=== PATIENT | male | born 1960 | race Caucasian/White ===

== ENCOUNTER 2024-06-01 08:44 | Emergency (ER) | payer MEDICARE, BC, SELFPAY ==
[2024-06-01] VITALS (51 sets, daily range): BP systolic 82–129; BP diastolic 56–98; PULSE 50–144; RESP 15–19; TEMP 35.6; O2SAT 94–99; BMI 27.9
--- NOTE | 2024-06-01 09:03 | CRLHL7_ITS ---
For Patients: As a result of the Century Cures Act, medical imaging exams and procedure reports are released immediately into your electronic medical record. You may view this report before your referring provider. If you have questions, please contact your health care provider. INDICATION: Chest pain. TECHNIQUE: Chest 2 views. COMPARISON: None. FINDINGS: Cardiovascular and mediastinum: Heart size is normal. Unremarkable mediastinum. Lungs and pleural spaces: Lungs are clear. No sign of infiltrate or mass. No sign of pleural effusion. No pneumothorax. Bones and soft tissues: Mild degenerative disease of the spine. IMPRESSION: No acute or significant findings. Dictated by Ashley Subramanian MD @ 06/01/2024 9:36:02 AM (Electronically Signed)
[2024-06-01] MEDS: 0.9 % SODIUM CHLORIDE 1000 ml 1,000 ML IV ×2 (09:10→11:00)
[2024-06-01 09:16] LABS: Basophils Absolute Auto 0.05 K/uL (0.00-0.30); Basophils Percent Auto 0.7 % (0.0-3.0); Eosinophils Absolute Auto 0.44 K/uL (0.00-0.50); Eosinophils Percent Auto 6.1 % (0.0-7.0); Hematocrit 46.5 % (37.0-53.0); Hemoglobin* 15.4 gm/dL (13.5-17.5); Immature Granulocytes Abs Auto 0.01 K/uL (0.00-0.30); Immature Granulocytes Pct Auto 0.1 %; Lymphocytes Percent Auto 18.4 % (20-44); Mean Corpuscular HGB Conc 33 gm/dL (32-36); Mean Corpuscular Hemoglobin 29 pg (26-34); Mean Corpuscular Volume 89 fL (80-100); Neutrophils Absolute Auto 4.74 K/uL (1.7-7.0); Neutrophils Percent Auto 65.7 % (42.0-72.0); Platelet Count* 266 K/uL (140-440); RDW Coefficient of Variation % 13.1 % (11.5-15.5); Red Blood Count 5.24 m/uL (4.30-5.90); White Blood Count* 7.22 K/uL (4.50-11.00)
[2024-06-01 09:20] LABS: Slide Review Reflex No
[2024-06-01] MEDS: ASPIRIN 81 MG TAB.CHEW 324 MG PO (09:25)
[2024-06-01] MEDS: dilTIAZem 5 MG/ML inj 10 MG IVP ×2 (09:27→11:30)
--- NOTE | 2024-06-01 09:39 | ED_ITS ---
HPI - Arrhythmia/Palpitations General Date Seen: 06/01/24 Chief Complaint: Arrhythmia/Palpitations Stated Complaint: irregular heartbeat Time Seen by Provider: 06/01/24 08:49 Source: patient and family Mode of arrival: ambulatory Limitations: no limitations History of Present Illness HPI narrative: Patient is a very nice 64-year-old gentleman who woke up this morning with a feeling that his heart was racing, he had palpitations associated with the really not chest pain shortness of breath, in fact he told me he refill fine although in triage they wondered if he did not look so fine because he was sweaty and slightly diaphoretic. He notes that he does not really have a heart history of any problems denies any alcohol intake says maybe he was a little dehydrated yesterday, denies any leg swelling associated with this. Nausea vomiting diarrhea or COVID symptoms. Presents here with his . complaint: rapid heart beat and heart racing Severity: moderate Context: occurred during rest Associated symptoms: denies other symptoms Related Data Home Medications ?Medication ?Instructions ?Recorded ?Confirmed finasteride 5 mg tablet 5 mg PO DAILY 06/01/24 06/01/24 ketorolac 0.5 % eye drops drp ophthalmic (eye) 06/01/24 omeprazole 20 mg capsule,delayed 20 mg PO DAILY 06/01/24 06/01/24 release rosuvastatin 10 mg tablet 10 mg PO QPM 06/01/24 06/01/24 tamsulosin 0.4 mg capsule 0.4 mg PO DAILY 06/01/24 06/01/24 timolol maleate 0.5 % eye drops 1 drp ophthalmic (eye) BID 06/01/24 06/01/24 Previous Rx's ?Medication ?Instructions ?Recorded rivaroxaban 20 mg tablet (Xarelto) 20 mg PO DAILY #30 tabs 06/01/24 Allergies Allergy/AdvReac Type Severity Reaction Status Date / Time No Known Drug Allergies Allergy Verified 06/01/24 08:50 Review of Systems Status of ROS: Reports: 10 or more systems reviewed and unremarkable except as noted in History and below [facility] Social History Smoking Status: Never smoker Do you use any of these nicotine containing products: None How often do you have a drink containing alcohol: never How often do you have six or more drinks on one occasion: Never AUDIT-C Alcohol total score: 0 Non-prescribed substance use: denies use Exam Narrative: Exam Narrative: Patient is seen in room 5 he is in no apparent distress pleasant alert speaking normally pupils equal round reactive to light there is no scleral icterus redness TMs are normal oropharynx normal there is no adenopathy anterior posterior chains his chest is good air entry bilaterally no wheezing crackles noted heart sounds no clicks murmurs or gallops his abdomen is soft and slightly obese there is no guarding or pedis splenomegaly skin reveals no petechiae rashes he moves all extremities independently and well. Well perfused, no edema, negative Homans signs. Neurologically intact in his upper lower extremities. Const: Vital Signs, click to edit/add: Vital Signs - 24 hr 06/01/24 08:46 06/01/24 09:03 06/01/24 09:03 Temperature 96.1 F L Pulse Rate Pulse Rate [Pulse Oximeter] 99 130 H Respiratory Rate 18 18 Blood Pressure Blood Pressure [Ri ght Upper Arm] 82/58 L Pulse Oximetry 98 96 96 Oxygen Delivery Me thod Room Air Oxygen Flow Rate 06/01/24 09:14 06/01/24 09:15 06/01/24 09:17 Temperature Pulse Rate 123 H 144 H 122 H Pulse Rate [Pulse Oximeter] Respiratory Rate Blood Pressure 106/56 L Blood Pressure [Ri ght Upper Arm] Pulse Oximetry 96 96 97 Oxygen Delivery Me thod Oxygen Flow Rate 06/01/24 09:30 06/01/24 09:32 06/01/24 09:45 Temperature Pulse Rate 109 H 97 82 Pulse Rate [Pulse Oximeter] Respiratory Rate Blood Pressure 112/56 L Blood Pressure [Ri ght Upper Arm] Pulse Oximetry 95 96 97 Oxygen Delivery Me thod Oxygen Flow Rate 06/01/24 09:46 06/01/24 10:00 06/01/24 10:02 Temperature Pulse Rate 98 97 106 H Pulse Rate [Pulse Oximeter] Respiratory Rate Blood Pressure 101/81 114/84 Blood Pressure [Ri ght Upper Arm] Pulse Oximetry 97 97 95 Oxygen Delivery Me thod Oxygen Flow Rate 06/01/24 10:15 06/01/24 10:19 06/01/24 10:30 Temperature Pulse Rate 90 84 92 Pulse Rate [Pulse Oximeter] Respiratory Rate Blood Pressure Blood Pressure [Ri ght Upper Arm] Pulse Oximetry 96 96 97 Oxygen Delivery Me thod Oxygen Flow Rate 06/01/24 10:34 06/01/24 10:38 06/01/24 10:39 Temperature Pulse Rate 86 131 H 89 Pulse Rate [Pulse Oximeter] Respiratory Rate Blood Pressure 111/92 H Blood Pressure [Ri ght Upper Arm] Pulse Oximetry 96 96 95 Oxygen Delivery Me thod Oxygen Flow Rate 06/01/24 10:45 06/01/24 11:00 06/01/24 11:01 Temperature Pulse Rate 84 92 Pulse Rate [Pulse Oximeter] Respiratory Rate Blood Pressure 110/75 Blood Pressure [Ri ght Upper Arm] Pulse Oximetry 95 94 96 Oxygen Delivery Me thod Oxygen Flow Rate 06/01/24 11:13 06/01/24 11:15 06/01/24 11:30 Temperature Pulse Rate 90 95 97 Pulse Rate [Pulse Oximeter] Respiratory Rate Blood Pressure 118/79 Blood Pressure [Ri ght Upper Arm] Pulse Oximetry 97 96 94 Oxygen Delivery Me thod Oxygen Flow Rate 06/01/24 11:31 06/01/24 11:45 06/01/24 12:00 Temperature Pulse Rate 116 H 82 75 Pulse Rate [Pulse Oximeter] Respiratory Rate Blood Pressure 106/90 H Blood Pressure [Ri ght Upper Arm] Pulse Oximetry 98 94 94 Oxygen Delivery Me thod Oxygen Flow Rate 06/01/24 12:01 06/01/24 12:02 06/01/24 12:15 Temperature Pulse Rate 78 84 83 Pulse Rate [Pulse Oximeter] Respiratory Rate Blood Pressure 115/83 Blood Pressure [Ri ght Upper Arm] Pulse Oximetry 96 95 98 Oxygen Delivery Me thod Oxygen Flow Rate 06/01/24 12:30 06/01/24 12:30 06/01/24 12:32 Temperature Pulse Rate 88 101 H Pulse Rate [Pulse Oximeter] Respiratory Rate 16 Blood Pressure 119/98 H Blood Pressure [Ri ght Upper Arm] Pulse Oximetry 94 96 Oxygen Delivery Me thod Oxygen Flow Rate 06/01/24 12:45 06/01/24 13:00 06/01/24 13:02 Temperature Pulse Rate 85 95 95 Pulse Rate [Pulse Oximeter] Respiratory Rate Blood Pressure 121/79 Blood Pressure [Ri ght Upper Arm] Pulse Oximetry 97 98 98 Oxygen Delivery Me thod Oxygen Flow Rate 06/01/24 13:16 06/01/24 13:30 06/01/24 13:31 Temperature Pulse Rate 86 121 H Pulse Rate [Pulse Oximeter] Respiratory Rate 15 15 Blood Pressure 112/92 H Blood Pressure [Ri ght Upper Arm] Pulse Oximetry 98 97 Oxygen Delivery Me thod Oxygen Flow Rate 06/01/24 13:36 06/01/24 13:41 06/01/24 13:45 Temperature Pulse Rate 102 H 54 L 52 L Pulse Rate [Pulse Oximeter] Respiratory Rate 19 16 17 Blood Pressure 129/87 103/67 Blood Pressure [Ri ght Upper Arm] Pulse Oximetry 99 98 97 Oxygen Delivery Me thod Oxygen Flow Rate 06/01/24 13:46 06/01/24 13:49 06/01/24 13:49 Temperature Pulse Rate 52 L Pulse Rate [Pulse Oximeter] 51 L Respiratory Rate 19 16 Blood Pressure 94/65 Blood Pressure [Ri ght Upper Arm] Pulse Oximetry 98 99 97 Oxygen Delivery Me thod Nasal Cannula Nasal Cannula Oxygen Flow Rate 2 2 Course Course ED Course: I discussed with him, we will try some maneuvers, I used IV fluids x2 L along with magnesium, to see we can convert over his atrial fibrillation, this did not work, we did however get him 1 more reasonable course, in the 110s to 120 region. He continued to be fairly symptomatic with this. I did consult with Cardiology after discussing with him, he suggested electricity and cardioversion, I went over the risks benefits and side effects with this, he is greater than 6 hours NPO. And with the doctor Jose D doing at anesthesia for me. With propofol, 120 joules was used, synchronized x1, to convert him, and actually appeared he converted slightly before this, maybe with a propofol. EKG post cardioversion showed atrial fibrillation with controlled rate of 53. He will need post cardioversion anticoagulation for 1 month. Follow-up with primary care, and likely echo. Reevaluation(s) Time of Reevaluation #1: 14:55 Reevaluation #1: Patient remains in sinus rhythm, he feels well, at this point we can discharge him home, I discussed him with him for month long course of Xarelto, 20 mg a day, follow-up within a week with his primary care physician I suggest an echo as an outpatient also. Vital Signs Vital signs: Initial Vital Signs Temperature 96.1 F L 06/01/24 08:46 Temperature Source Temporal Artery Scan 06/01/24 08:46 Pulse Rate 99 06/01/24 08:46 Respiratory Rate 18 06/01/24 08:46 Blood Pressure 82/58 L 06/01/24 08:46 Blood Pressure Mean 66 L 06/01/24 08:46 Pulse Oximetry 98 06/01/24 08:46 Oxygen Delivery Method Room Air 06/01/24 08:46 Vital Signs Temperature 96.1 F L 06/01/24 08:46 Pulse Rate 99 06/01/24 08:46 Respiratory Rate 18 06/01/24 08:46 Blood Pressure 82/58 L 06/01/24 08:46 Pulse Oximetry 98 06/01/24 08:46 Oxygen Delivery Method Room Air 06/01/24 08:46 Temperature 96.1 F L 06/01/24 08:46 Pulse Rate 51 L 06/01/24 13:49 Respiratory Rate 16 06/01/24 13:49 Blood Pressure 94/65 06/01/24 13:46 Pulse Oximetry 97 06/01/24 13:49 Oxygen Delivery Method Nasal Cannula 06/01/24 13:49 Oxygen Flow Rate 2 06/01/24 13:49 Medications Administered Medications: Discontinued Medications Generic Name Dose Route Start Last Admin Trade Name Freq PRN Reason Stop Dose Admin Aspirin 324 mg 06/01/24 09:14 06/01/24 09:25 Aspirin 81 Mg Tab.Chew PO 06/01/24 09:15 324 mg ONCE ONE Administration Diltiazem HCl 10 mg 06/01/24 09:03 06/01/24 09:27 Diltiazem 5 Mg/Ml Inj IVP 06/01/24 09:04 10 mg ONCE ONE Administration Diltiazem HCl 10 mg 06/01/24 11:23 06/01/24 11:30 Diltiazem 5 Mg/Ml Inj IVP 06/01/24 11:24 10 mg ONCE ONE Administration Sodium Chloride 1,000 mls @ 1,000 mls/hr 06/01/24 09:15 06/01/24 10:43 0.9 % Sodium Chloride 1000 Ml IV 06/01/24 10:14 Infused .Q1H DARREL Infusion Sodium Chloride 1,000 mls @ 1,000 mls/hr 06/01/24 11:30 06/01/24 12:00 0.9 % Sodium Chloride 1000 Ml IV 06/01/24 12:29 Infused .Q1H DARREL Infusion Magnesium Sulfate 2 gm in 50 mls @ 150 mls/hr 06/01/24 11:23 06/01/24 12:00 Magnesium Iv IVPB 06/01/24 11:42 Infused ONCE ONE Infusion Rivaroxaban 20 mg 06/01/24 14:01 06/01/24 14:26 Rivaroxaban 10 Mg Tablet PO 06/01/24 14:02 20 mg ONCE ONE Administration MDM - Arrhythmia/Palpitations MDM Narrative Medical decision making narrative: Differential diagnosis includes but is not limited to psychosocial stress, thyroid abnormalities, CHF, SVT, atrial fibrillation, ventricular tachycardia and ventricular fibrillation. This includes the life-threatening complications of heart failure, V-tach, and VFib Medical Records Attestation: I reviewed the patient's medical records. Lab Data Attestation: I reviewed the patient's lab results. Labs: Lab Results 06/01/24 06/01/24 06/01/24 Range/Units 09:03 09:05 11:54 WBC 7.22 (4.50-11.00) K/uL RBC 5.24 (4.30-5.90) m/uL Hgb 15.4 (13.5-17.5) gm/dL Hct 46.5 (37.0-53.0) % MCV 89 (80-100) fL MCH 29 (26-34) pg MCHC 33 (32-36) gm/dL RDW Coeff of Danielle 13.1 (11.5-15.5) % Plt Count 266 (140-440) K/uL Neut % (Auto) 65.7 (42.0-72.0) % Lymph % (Auto) 18.4 L (20-44) % [place] % (Auto) 9.0 (0.0-11.0) % Eos % (Auto) 6.1 (0.0-7.0) % Baso % (Auto) 0.7 (0.0-3.0) % Neut # (Auto) 4.74 (1.7-7.0) K/uL Lymph # (Auto) 1.30 (0.90-2.90) K/uL [place] # (Auto) 0.60 (0.00-0.90) K/UL Eos # (Auto) 0.44 (0.00-0.50) K/uL Baso # (Auto) 0.05 (0.00-0.30) K/uL Abs Immat Gran (auto) 0.01 (0.00-0.30) K/uL Imm/Tot Granulo (auto) 0.1 % INR 0.98 (0.91-1.10) APTT 26 (23-33) Seconds D-Dimer Quant (PE/DVT) 0.47 (0.00-0.50) ug/ml Sodium 137 (135-149) mmol/L Potassium 3.8 (3.6-5.1) mmol/L Chloride 104 (96-114) mmol/L Carbon Dioxide 23 (20-32) mmol/L Anion Gap 10 (7-15) mEq/L BUN 16 (7-30) mg/dL Creatinine 0.9 (0.5-1.5) mg/dL Estimated Creat Clear 78.44 Estimated GFR 95 ml/min Glucose 162 H (60-115) mg/dL Calcium 9.1 (8.4-10.6) mg/dL Magnesium 2.1 (1.5-2.6) mg/dL NT-Pro-B Natriuret Pep 104 pg/mL TSH 2.230 (0.270-4.20) uIU/mL SARS-CoV-2 (PCR) Negative SARS-CoV-2 (Negative) Influenza Type A (PCR) Negative PCR FLU A (Negative) Influenza Type B (PCR) Negative PCR FLU B (Negative) RSV (PCR) Negative PCR RSV (Negative) Lab Acknowledgement POC Troponin I 0.00 L 0.01 (0.01-0.04) ng/ml 06/01/24 06/01/24 Range/Units 12:44 13:02 WBC (4.50-11.00) K/uL RBC (4.30-5.90) m/uL Hgb (13.5-17.5) gm/dL Hct (37.0-53.0) % MCV (80-100) fL MCH (26-34) pg MCHC (32-36) gm/dL RDW Coeff of Danielle (11.5-15.5) % Plt Count (140-440) K/uL Neut % (Auto) (42.0-72.0) % Lymph % (Auto) (20-44) % [place] % (Auto) (0.0-11.0) % Eos % (Auto) (0.0-7.0) % Baso % (Auto) (0.0-3.0) % Neut # (Auto) (1.7-7.0) K/uL Lymph # (Auto) (0.90-2.90) K/uL [place] # (Auto) (0.00-0.90) K/UL Eos # (Auto) (0.00-0.50) K/uL Baso # (Auto) (0.00-0.30) K/uL Abs Immat Gran (auto) (0.00-0.30) K/uL Imm/Tot Granulo (auto) % INR (0.91-1.10) APTT (23-33) Seconds D-Dimer Quant (PE/DVT) (0.00-0.50) ug/ml Sodium (135-149) mmol/L Potassium (3.6-5.1) mmol/L Chloride (96-114) mmol/L Carbon Dioxide (20-32) mmol/L Anion Gap (7-15) mEq/L BUN (7-30) mg/dL Creatinine (0.5-1.5) mg/dL Estimated Creat Clear Estimated GFR ml/min Glucose (60-115) mg/dL Calcium (8.4-10.6) mg/dL Magnesium (1.5-2.6) mg/dL NT-Pro-B Natriuret Pep pg/mL TSH (0.270-4.20) uIU/mL SARS-CoV-2 (PCR) (Negative) Influenza Type A (PCR) (Negative) Influenza Type B (PCR) (Negative) RSV (PCR) (Negative) Lab Acknowledgement Test Added Test Added POC Troponin I (0.01-0.04) ng/ml Imaging Data Chest x-ray: Attestation: I have reviewed the pertinent imaging results. My impression: Chest x-ray by my review did not show any acute findings Radiologist's impression: Chest x-ray by radiologist did not show any acute findings. ECG Data Attestation: I personally reviewed and interpreted this ECG as follows: ECG interpretation date: 06/01/24 Prior ECG tracings: not available for review Interpretation: Initial EKG shows rapid atrial fibrillation with a ventricular response of 156, it is nonspecific ST wave abnormalities her Critical Care Time Critical Care Time Critical Care Time: Yes Attestation: The patient required my highest level preparedness to intervene emergently and I personally spent this critical care time directly and personally managing the patient. This critical care time included: Obtaining a history; Examining the patient; Pulse oximetry; Ordering and reviewing of studies; Arranging urgent treatment with development of a management plan; Evaluation of patients response to treatment; Frequent reassessment discussions with other providers. This critical care time was performed to assess and manage the high probability of imminent life-threatening deterioration that could result in multiorgan failure. It was exclusive of separate billable procedures and treating other patients and teaching time. Total Critical Care Time in Minutes: 45 (Total critical care time: Approximately minutes due to high probability clinically significant, life- threatening deterioration, the patient required my highest level preparedness to intervene emergently and I personally spent this critical care time directly and personally managing the patient. T) Discharge Plan Discharge Clinical Impression: Heart palpitations, Atrial fibrillation with rapid ventricular response, Encounter for cardioversion procedure Patient Disposition: Home w/ Parent or Adult Condition: Stable Instructions: A-fib (Atrial Fibrillation) (ED), Heart Palpitations (ED) Additional Instructions: He will need follow-up with her physician within the next week, return here if increasing chest pain shortness of breath or other palpitations, he will need to take her anticoagulants for 1 month. Prescription given. Activity Level: Light activity Prescriptions: New Xarelto 20 mg tablet 20 mg PO DAILY Qty: 30 0RF Rx Instructions: must administer with evening meal No Action ketorolac 0.5 % drops ophthalmic (eye) tamsulosin 0.4 mg capsule 0.4 mg PO DAILY omeprazole 20 mg capsule,delayed release(DR/EC) 20 mg PO DAILY timolol maleate 0.5 % drops 1 drp ophthalmic (eye) BID finasteride 5 mg tablet 5 mg PO DAILY rosuvastatin 10 mg tablet 10 mg PO QPM Follow Up/Referrals: FABRICE IQBAL DO [Primary Care Provider] - Stand Alone Forms: [employer] Info Instructions
[2024-06-01 09:42] LABS: Partial Thromboplastin Time* 26 Seconds (23-33)
[2024-06-01 09:43] LABS: INR 0.98 (0.91-1.10); Prothrombin Time 13.6 Seconds
[2024-06-01 09:44] LABS: D Dimer Quantitative* 0.47 ug/ml (0.00-0.50)
[2024-06-01 09:47] LABS: Chloride* 104 mmol/L (96-114); Potassium* 3.8 mmol/L (3.6-5.1); Sodium* 137 mmol/L (135-149)
[2024-06-01 09:50] LABS: Anion Gap 10 mEq/L (7-15); Blood Urea Nitrogen* 16 mg/dL (7-30); Carbon Dioxide* 23 mmol/L (20-32); Creatinine* 0.9 mg/dL (0.5-1.5); Est. Creatinine Clearance* 78.44; Estimated Glomerular Filt Rate 95 ml/min; Glucose* 162 mg/dL (60-115)
[2024-06-01 09:51] LABS: Calcium* 9.1 mg/dL (8.4-10.6)
[2024-06-01 09:58] LABS: PCR FLU A Negative PCR FLU A (Negative); PCR FLU B Negative PCR FLU B (Negative); PCR RSV Negative PCR RSV (Negative); SARS PCR* Negative SARS-CoV-2 (Negative)
[2024-06-01 10:05] LABS: NT Pro B Type NatriureticPept* 104 pg/mL
[2024-06-01] MEDS: MAGNESIUM IV 2 GM/50 ML PIGGYBACK IVPB (11:35)
[2024-06-01 12:17] LABS: Troponin, Point-of-Care* 0.01 ng/ml (0.01-0.04)
[2024-06-01 13:03] LABS: Magnesium* 2.1 mg/dL (1.5-2.6)
[2024-06-01] MEDS: RIVAROXABAN 10 MG TABLET 20 MG PO (14:26)
--- NOTE | 2024-06-01 15:07 | ED.NURSE ---
Vital signs attached to conscious sedation sheet.
--- NOTE | 2024-06-01 15:07 | W.ED.CHARTNO ---
ED Chart Note Chart Note Details Date: 06/01/24 Details: I was requested to assist to Dr. Franco for sedation while he performed cardioversion of this patient. Appropriate pre sedation evaluation was done. Patient was consented on the risks and benefits of propofol for anesthesia. He was on appropriate cardiac monitoring, pulse oximetry, capnography and supplemental oxygen. He had brief apnea which was assisted with a few breath of bag mask ventilation. Independent breathing resumed and patient did fine with chin lift for few minutes. He had no concerning hemodynamic changes and was cardioverted into sinus rhythm. Please see Dr. Franco's note for full details. A total of 100 mg of propofol was used for sedation/anesthesia.
== END 2024-06-01 15:06 | disposition home or self-care (01) ==
PROVIDERS: Emergency Provider Family Medicine; PCP Student in an Organized Health Care Education/Training Program
DX: R00.2 Palpitations (principal); I48.91 Unspecified atrial fibrillation
CPT/HCPCS: 92960; 36415; 71046; 80048; 83735; 83880; 84443; 84484; 85025; 85379; 85610; 85730; 87631; 93005; 94761; 96365; 96375; 99156; 99285; 99291; A9270; J3475; J7030

== ENCOUNTER 2025-05-24 13:52 | Emergency (ER) | payer MEDICARE, BC, SELFPAY ==
[2025-05-24] VITALS (19 sets, daily range): BP systolic 93–128; BP diastolic 67–97; PULSE 46–161; RESP 10–22; TEMP 36.3; O2SAT 95–100; BMI 29.3
--- OUTSIDE RECORDS SUMMARY | 2025-05-24 14:01 | XMS_ITS | Clinical Summary ---
Author Organization [employer] Address [address] [place] [id number] Care Team Providers Care Instrument Engineer Name Role Phone Joel Dumont DO Primary Care Provider [phone] Allergies No known active allergies Medications ketorolac 0.5 % ophthalmic (ACULAR) solution Place 1 Drop into left eye 4 times daily. 10 mL 2 9 Active timoloL maleate (TIMOPTIC) 0.5 % ophthalmic solution Place 1 Drop into both eyes once daily. 5 Active rosuvastatin (CRESTOR) 10 mg tabletIndications:M ixed hyperlipidemia TAKE 1 TABLET (10 MG) BY MOUTH AT BEDTIME. 90 Tablet 3 5 Active omeprazole (PRILOSEC) 20 mg Delayed-Release capsuleIndications: Gastroesophageal reflux disease, unspecified whether esophagitis present TAKE 1 CAPSULE (20 MG) BY MOUTH ONCE DAILY BEFORE A MEAL. 30-60 MINUTES BEFORE FOOD 90 Capsule 3 5 Active Active Problems Problem Noted Date Diagnosed Date Paroxysmal atrial fibrillation 06/02/2024 Overview (06/02/2024): Diagnosed in ER on 06/01/2024. Cardioverted while hospitalized. Family history of prostate cancer 11/23/2020 Eosinophilic esophagitis 01/28/2012 Overview (01/28/2012): EGD 01/2012 esophageal ulcer, likely reflux related Screen for colon cancer 09/20/2009 Overview (09/20/2009): Colonoscopy 09/2009 normal repeat in 10 years Encounters Date Type Department Care Team Description 04/22/2025 Refill [facility] [address] [place] [address] Joel Dumont DO Refill Request (Rosuvastatin, Omeprazole) 04/13/2025 8:05 AM CDT Office Visit [facility] [address] [facility] [address] Joel Dumont DO Medicare ANNUAL (subsequent) Visit (65 year old ) 04/13/2025 Travel 04/08/2025 Travel from Last 3 Months Immunizations Immunization Administration Dates Next Due COVID-19 vaccine ([employer]ery [employer] 30mcg/0.3mL) PF, MDV 11/01/2020,10/11/2020 Influenza RIV4 (Age 18+ Year s) PRESERV FREE 06/17/2019 Influenza, High-dose Inactivated 07/07/2024 Influenza, IIV3 (Age >=3 years) 07/20/2013 Influenza, IIV4 07/03/2023,,07/14/2018,2016,08/10/2015,07/29/2014 Influenza, IIV4 (=>6mos) MDV 06/14/2021,06/24/20 20,06/18/2016 Pneumococcal Conj 20-valent (Prevnar 20) 04/10/2024 Td (Age >=7 Years) 12/22/2021,04/23/2008 Tdap 01/09/2012 Zoster (Shingrix-RZV, recombinant) 09/23/2019, Family History Medical History Relation Name Comments Stroke Father Good Health Mother Heart Disease Sister Other Sister hodgkins lympho ma Anesthesia Problem No Family History Relation Name Status Comments Father Mother Sister Social History Tobacco Use Types Packs/Day Years Used Date Smoking Tobacco: Never Smokeless Tobacco: Never Tobacco Cessation:Counseling Given: Yes Alcohol Use Standard Drinks/Week Comments Yes 10 (1 standard drink = 0.6 oz pu re alcohol) five drinks a week PHQ-2 Answer Date Recorded PHQ-2 TOTAL SCORE 0 04/13/2025 Social Connections Answer Date Recorded Do you often feel lonely or isolated from those around you? 0 04/13/2025 Financial Resource Strain Answer Date R ecorded Difficulty of Paying Living Expenses 3 04/13/2025 Difficulty of Paying Living Expenses Not on file 04/13/2025 Food Insecurity Answer Date Recorded Do you worry your food will run out before you are able to buy more? 1 04/13/2025 Transportation Needs Answer Date Record ed Does lack of transportation keep you from medica l appointments? 1 04/13/2025 Does lack of transportation keep you from work, meetings or getting things that you need? 1 04/13/2025 Housing Stability Answer Date Recorded What is your housing situation today? 1 04/13/2025 Utilities Answer Date Recorded Do you have trouble paying f or utilities (for example, heat, electricity, water, phone)? 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 file Not on file Not on f ile Obstetrics History Last Filed Vital Signs Vital Sign Reading Time Taken Comments Blood Pressure 136/84 04/13/2025 8:10 AM CDT Pulse 58 04/13/2025 8:10 AM CDT Temperature 36.6 C (97.8 F) 04/08/2023 8:28 AM CDT Respiratory Rate 16 10/05/2020 9:22 AM SHOP COORDINATOR Oxygen Saturation 98% 04/13/2025 8:10 AM CDT Inhaled Oxygen Concentration - - Weight 95.3 kg (210 lb 3.2 oz) 04/13/2025 8:10 A M CDT Height 179.1 cm (5' 10.51) 04/13/2025 8:10 AM C DT Body Mass Index 29.73 04/13/2025 8:10 AM CDT Plan of Treatment Health Maintenance Due Date Last Done Comments COVID-19 vaccine series ( season) 2025 07/19/2023, 06/13/2022, 06/14/2021, Additional history exists Influenza Vaccine (#1) 2025 , 07/03/2023, 06/13/2022, Additional history exists BMI (ht and wt on same day) for age 18+ 04/13/2026 04/13/2025, 04/10/2024, 04/08/2023, Additional history exists Depression screening for age 12+ 04/13/2026 04/13/2025, 04/10/2024, 04/08/2023, Additional history exists Medicare Wellness for age 65+ 04/14/2026 04/13/2025, 04/10/2024 Fecal testing sDNA-FIT (Cologuard) for age 45-75 04/15/2026 04/15/2023 Lipids for age 45-75 04/13/2030 04/13/2025, 04/10/2024, 04/08/2023, Additional history exists Tetanus booster 12/23/2031 12/22/2021, 12/16, 04/23/2008 RSV vaccine for adults or (1 - 1-dose 75+ series) 2034 Zoster (shingles) series for age 50+ Completed 09/23/2019, 06/10/2019 Hepatitis C screening for age 18-79 Completed 12/22/2021 Pneumococcal series for age 50+ Completed 04/10/2024 Hepatitis B series for 19+ Aged Out N o longer eligible based on patient's age to complete this topic Procedures Procedure Name Priority Date/Time Associated Diagnosis Comments LIPID PANEL W REFLEX MEASURED LDL Routine 04/13/2025 8:43 AM CDT Mixed hyperlipidemia BASIC METABOLIC PANEL Routine 04/13/2025 8:43 AM CDT Paroxysmal atrial fibrillation (HC) PSA TOTAL Routine 04/13/2025 8:43 AM CDT Family history of prostate cancer BPH with obstruction/lower urinary tract symptoms SDNA-FIT EXTERNAL (COLOGUARD) Routine 04/15/2023 8:00 AM CDT Screening for colon cancer ANTI HCV Routine 12/22/2021 9:20 AM CDT Need for hepatitis C screening test from Last 3 Months or Most Recently Relevant to Health Maintenance Results * LIPID PANEL W REFLEX MEASURED LDL (04/13/2025 8:43 AM CDT) CHOLESTEROL, TOTAL 142 <200 mg/dL [facility] HDL CHOLESTEROL 61 > OR = 40 mg/dL [facility] TRIGLYCERIDES 84 <150 mg/dL [facility] LDL-CHOLESTEROL 65 mg/dL (calc) [facility] Comment: Reference range: <100 Desirable range <100 mg/dL for primary prevention; <70 mg/dL for patients with CHD or diabetic patients with > or = 2 CHD risk factors. LDL-C is now calculated using the Gayle calculation, which is a validated novel method providing better accuracy than the Friedewald equation in the estimation of LDL-C. Collins SS et al. RAKESH. 2013;310(18): 3043-7645 (http://education.Ideal Network/faq/PVU635) CHOL/HDLC RATIO 2.3 <5.0 (calc) [facility] NON HDL CHOLESTEROL 81 <130 mg/dL (calc) [facility] Comment: For patients with diabetes plus 1 major ASCVD risk factor, treating to a non-HDL-C goal of <100 mg/dL (LDL-C of <70 mg/dL) is considered a therapeutic option. Blood BLOOD SPECIMEN / Unknown 04/13/2025 8:43 AM CDT 04/13/2025 8:43 AM CDT us Joel Dumont DO CHEMISTRY Final Result [employer] [facility] [address] [place] [address], [facility] [address] [place] [address] * PSA TOTAL (DIAG OR SCREEN) (04/13/2025 8:43 AM CDT) PSA, TOTAL 2.55 < OR = 4.00 ng/mL [facility] Comment: The total PSA value from this assay system is standardized against the WHO standard. The test result will be approximately 20% lower when compared to the equimolar-standardized total PSA (Jason [place]). Comparison of serial PSA results should be interpreted with this fact in mind. This test was performed using the Siemens chemiluminescent method. Values obtained from different assay methods cannot be used interchangeably. PSA levels, regardless of value, should not be interpreted as absolute evidence of the presence or absence of disease. Blood BLOOD SPECIMEN / Unknown 04/13/2025 8:43 AM CDT 04/13/2025 8:43 AM CDT Joel Dumont DO CHEMISTRY Final Result [employer] [facility] [address] [place] [address], [facility] [address] [place] [address] * BASIC METABOLIC PANEL (04/13/2025 8:43 AM CDT) Pathologist [facility] GLUCOSE 96 65 - 99 mg/dL [facility] Comment: Fasting reference interval UREA NITROGEN (BUN) 12 7 - 25 mg/dL [facility] CREATININE 0.92 0.70 - 1.35 mg/dL [facility] EGFR 92 > OR = 60 mL/min/1. 73m2 [facility] BUN/CREATININE RATIO SEE NOTE: 6 - 22 (calc) [facility] Comment: Not Reported: BUN and Creatinine are within reference range. SODIUM 141 135 - 146 mmol/L [facility] POTASSIUM 4.3 3.5 - 5.3 mmol/L [facility] CHLORIDE 103 98 - 110 mmol/L [facility] CARBON DIOXIDE 30 20 - 32 mmol/L [facility] ELECTROLYTE BALANCE 8 7 - 17 mmol/L (calc) [facility] CALCIUM 9.3 8.6 - 10.3 mg/dL [facility] Blood BLOOD SPECIMEN / Unknown 04/13/2025 8:43 AM CDT 04/13/2025 8:43 AM CDT Joel Dumont CHEMISTRY Final Result [facility] [address] [place] [address], [facility] [address] [place] [address] * SDNA-FIT EXTERNAL (COLOGUARD) (04/15/2023 8:00 AM CDT) NONINV COLON CA DNA+OCC BLD SCRN STL-IMP Negative Negative 04/22/2023 8:49 AM CDT [facility] (CLIA #:[id number]) Comment: NEGATIVE TEST RESULT. A negative Cologuard result indicates a low likelihood that a colorectal cancer (CRC) or advanced adenoma (adenomatous polyps with more advanced pre-malignant features) is present. The chance that a person with a negative Cologuard test has a colorectal cancer is less than 1 in 1500 (negative predictive value >99.9%) or has an advanced adenoma is less than 5.3% (negative predictive value 94.7%). These data are based on a prospective cross-sectional study of 10,000 individuals at average risk for colorectal cancer who were screened with both Cologuard and colonoscopy. (Avila Lerma al, N Engl J Med 2014;370(14):9415-7595) The normal value (reference range) for this assay is negative. COLOGUARD RE-SCREENING RECOMMENDATION: Periodic colorectal cancer screening is an important part of preventive healthcare for asymptomatic individuals at average risk for colorectal cancer. Following a negative Cologuard result, the [place] Cancer Society and U.S. Multi-Society Task Force screening guidelines recommend a Cologuard re-screening interval of 3 years. References: [place] Cancer Society Guideline for Colorectal Cancer Screening: https://www.cancer.org/cancer/acbcw-jtrdps-pqkmwh/yccuppddo-xjiojyjig-kmlindu/ac s-rec ommendations.html.; Shad ROME, Marcella CR, Adeola DINERO, Colorectal Cancer Screening: Recommendations for Physicians and Patients from the U.S. Multi-Society Task Force on Colorectal Cancer Screening , Am J Gastroenterology 2017; 112:9796-2765. TEST DESCRIPTION: Composite algorithmic analysis of stool DNA-biomarkers with hemoglobin immunoassay. Quantitative values of individual biomarkers are not reportable and are not associated with individual biomarker result reference ranges. Cologuard is intended for colorectal cancer screening of adults of either sex, 45 years or older, who are at average-risk for colorectal cancer (CRC). Cologuard has been approved for use by the U.S. FDA. The performance of Cologuard was established in a cross sectional study of average-risk adults aged 50-84. Cologuard performance in patients ages 45 to 49 years was estimated by sub-group analysis of near-age groups. Colonoscopies performed for a positive result may find as the most clinically significant lesion: colorectal cancer [4.0%], advanced adenoma (including sessile serrated polyps greater than or equal to 1cm diameter) [20%] or non- advanced adenoma [31%]; or no colorectal neoplasia [45%]. These estimates are derived from a prospective cross-sectional screening study of 10,000 individuals at average risk for colorectal cancer who were screened with both Cologuard and colonoscopy. (Avila Romo et al, N Engl J Med 2014;370(14):7208-8128.) Cologuard may produce a false negative or false positive result (no colorectal cancer or precancerous polyp present at colonoscopy follow up). A negative Cologuard test result does not guarantee the absence of CRC or advanced adenoma (pre-cancer). The current Cologuard screening interval is every 3 years. ([place] Cancer Society and U.S. Multi-Society Task Force). Cologuard performance data in a 10,000 patient pivotal study using colonoscopy as the reference method can be accessed at the following location: www.[employer].com/results. Additional description of the Cologuard test process, warnings and precautions can be found at www.[employer].com. Stool specimen (specimen) (Rectum) 04/15/2023 8:00 AM CDT 04/16/2023 5:49 PM CDT Adei Shaqra DO URINE Final Result [facility] (CLIA #:[id number]) [place] [address], * ANTI HCV (12/22/2021 9:20 AM CDT) HEPATITIS C ANTIBODY Non-React laisha Non-React laisha 12/22/2021 4:32 PM CDT [facility] Comment:Antibodies to HCV no t detected; does not exclude the possibility of exposure to HCV. Blood BLOOD SPECIMEN / Unknown Venipuncture / Unknown 12/22/2021 9:20 AM CDT 12/22/2021 9:20 AM CDT Joel Dumont DO SEND OUTS Final Result [facility] [address] [place] [address], from Last 3 Months or Most Recently Relevant to Health Maintenance Insurance [facility] MEDICARE [place] ONLY MEDICARE PART A HB ONLY MEDICARE PART B HB ONLY * Guarantor: [employer] AD[employer] Account Type Relation to Patient Date of Phone Billing Address [facility] [address] [facility] [address] [place] [address] Advance Directives * Full Code (Latest Code Status on File) Date Activated Date Inactivated Comments 02/11/2019 10:43 AM 02/11/2019 3:58 PM Care Teams Instrument Engineer Relationship Specialty Start Date End Date [place] [place] [address] PCP - General Family Practice 11/16/20
--- NOTE | 2025-05-24 14:22 | ED.ARRPALP ---
HPI - Arrhythmia/Palpitations General Chief Complaint: Arrhythmia/Palpitations <Stephan Montejo MD - Last Filed: 05/24/25 16:46> Stated Complaint: Afib <Stephan Montejo MD - Last Filed: 05/24/25 16:46> Time Seen by Provider: 05/24/25 14:00 <Stephan Montejo MD - Last Filed: 05/24/25 16:46> History of Present Illness HPI narrative: This 65-year-old male comes in with his because of increased heart rate. He states that he noticed this at about 10:00 a.m. this morning, about 4 hours prior to arrival. He went out to attempt to run a short distance and did not feel well. He does not report any chest pain but did have some lightheadedness and shortness of breath. He arrives here with heart rate around 150 beats per minute. He does have a history of atrial fibrillation with rapid ventricular response and states that he was cardioverted about a year ago. He is not on any anticoagulants and has been doing well since then. <Stephan Montejo MD - Last Filed: 05/24/25 16:46> Related Data Home Medications: Home Medications ?Medication ?Instructions ?Recorded ?Confirmed ketorolac 0.5 % eye drops drp ophthalmic (eye) 06/01/24 omeprazole 20 mg capsule,delayed 20 mg PO DAILY 06/01/24 05/24/25 release rosuvastatin 10 mg tablet 10 mg PO QPM 06/01/24 05/24/25 tamsulosin 0.4 mg capsule 0.4 mg PO DAILY 06/01/24 06/01/24 timolol maleate 0.5 % eye drops 1 drp ophthalmic (eye) BID 06/01/24 05/24/25 Previous Rx's ?Medication ?Instructions ?Recorded apixaban 5 mg (74 tabs) tablets in See Rx Instructions PO .COMPLEX 05/24/25 a dose pack (Eliquis DVT-PE Treat #74 ea 30D Start) <Stephan Montejo MD - Last Filed: 05/24/25 16:46> Allergies/Adverse Reactions: Allergies Allergy/AdvReac Type Severity Reaction Status Date / Time No Known Drug Allergies Allergy Verified 05/24/25 13:58 <Stephan Montejo MD - Last Filed: 05/24/25 16:46> Review of Systems Status of ROS: Reports: 10 or more systems reviewed and unremarkable except as noted in History and below <Stephan Montejo MD - Last Filed: 05/24/25 16:46> Narrative: Constitutional: No fevers, no weight gain or loss. Eyes: No discharge. No vision changes. HENT: No congestion, no sore throat, no ear pain. Cardiovascular: No chest pain. Rapid heart rate as described above. Respiratory: No shortness of breath, no wheezes, no cough. Gastrointestinal: No abdominal pain, no vomiting, no diarrhea. Genitourinary: No dysuria, no hematuria. Musculoskeletal: Normal range of motion. Skin: No rashes, no pruritis. Neurological: No dizziness, weakness, sensory change, speech change. Endo/Heme/Allergies: No bruising or bleeding. No polydipsia. Pysch: no suicidality, no anxiety, no insomnia. All other systems reviewed and are negative. <Stephan Montejo MD - Last Filed: 05/24/25 16:46> [facility] Social History: Social History Smoking Status: Never smoker Do you use any of these nicotine containing products: None How often do you have a drink containing alcohol: never How often do you have six or more drinks on one occasion: Never AUDIT-C Alcohol total score: 0 Non-prescribed substance use: denies use <Stephan Montejo MD - Last Filed: 05/24/25 16:46> Exam Narrative: Exam Narrative: Constitutional: Well-developed, well-nourished, no acute distress. HEENT: Normocephalic, atraumatic. Neck: Normal range of motion. Nontender. Supple. Heart: Irregular. Tachycardia. Lungs: Clear to auscultation. No chest discomfort. No wheezes, rhonchi, or rales. Abdomen: Normal bowel sounds. Nontender. No rebound tenderness. Genitalia: Deferred. Back: No midline tenderness. Normal range of motion. Extremities: Normal range of motion. No injury. Skin: Intact. No rash. Warm. No erythema or pallor. Neurologic: No altered sensation. No weakness. Alert and oriented. Psychiatric: No suicidality. No anxiety or depression. No insomnia. Nursing notes and vitals signs are reviewed. <Stephan Montejo MD - Last Filed: 05/24/25 16:46> Const: Vital Signs, click to edit/add: Vital Signs - 24 hr 05/24/25 14:00 05/24/25 14:10 05/24/25 14:17 Temperature 97.4 F L Pulse Rate 154 H Pulse Rate [Pulse Oximeter] 126 H Respiratory Rate 22 12 Blood Pressure 116/92 H Blood Pressure [Ri ght Upper Arm] 96/67 Pulse Oximetry 98 98 97 Oxygen Delivery Me thod Room Air Oxygen Flow Rate 05/24/25 14:28 05/24/25 14:34 05/24/25 14:35 Temperature Pulse Rate 161 H 110 H 99 Pulse Rate [Pulse Oximeter] Respiratory Rate 18 19 13 Blood Pressure 102/68 106/71 Blood Pressure [Ri ght Upper Arm] Pulse Oximetry 97 95 96 Oxygen Delivery Me thod Oxygen Flow Rate 05/24/25 14:42 05/24/25 14:51 05/24/25 15:01 Temperature Pulse Rate 86 87 90 Pulse Rate [Pulse Oximeter] Respiratory Rate 13 16 Blood Pressure 93/69 109/73 103/71 Blood Pressure [Ri ght Upper Arm] Pulse Oximetry 98 96 96 Oxygen Delivery Me thod Oxygen Flow Rate 05/24/25 15:11 05/24/25 15:32 05/24/25 15:56 Temperature Pulse Rate 77 86 79 Pulse Rate [Pulse Oximeter] Respiratory Rate 13 12 13 Blood Pressure 111/79 116/82 112/85 Blood Pressure [Ri ght Upper Arm] Pulse Oximetry 97 98 100 Oxygen Delivery Me thod Oxygen Flow Rate 05/24/25 15:59 05/24/25 16:00 05/24/25 16:02 Temperature Pulse Rate 84 84 Pulse Rate [Pulse Oximeter] Respiratory Rate 10 L 10 L Blood Pressure 128/93 H 121/97 H Blood Pressure [Ri ght Upper Arm] Pulse Oximetry 100 99 100 Oxygen Delivery Me thod Nasal Cannula Nasal Cannula Nasal Cannula Oxygen Flow Rate 2 2 2 05/24/25 16:07 05/24/25 16:12 05/24/25 16:16 Temperature Pulse Rate 47 L 47 L 46 L Pulse Rate [Pulse Oximeter] Respiratory Rate 22 20 12 Blood Pressure 109/78 97/77 95/73 Blood Pressure [Ri ght Upper Arm] Pulse Oximetry 99 100 98 Oxygen Delivery Me thod Nasal Cannula Nasal Cannula Room Air Oxygen Flow Rate 2 2 05/24/25 16:31 Temperature Pulse Rate 47 L Pulse Rate [Pulse Oximeter] Respiratory Rate 12 Blood Pressure 106/72 Blood Pressure [Ri ght Upper Arm] Pulse Oximetry 100 Oxygen Delivery Me thod Room Air Oxygen Flow Rate <Stephan Montejo MD - Last Filed: 05/24/25 16:46> Vital Signs, click to edit/add: Vital Signs - 24 hr 05/24/25 14:00 05/24/25 14:10 05/24/25 14:17 Temperature 97.4 F L Pulse Rate 154 H Pulse Rate [Pulse Oximeter] 126 H Respiratory Rate 22 12 Blood Pressure 116/92 H Blood Pressure [Ri ght Upper Arm] 96/67 Pulse Oximetry 98 98 97 Oxygen Delivery Me thod Room Air Oxygen Flow Rate 05/24/25 14:28 05/24/25 14:34 05/24/25 14:35 Temperature Pulse Rate 161 H 110 H 99 Pulse Rate [Pulse Oximeter] Respiratory Rate 18 19 13 Blood Pressure 102/68 106/71 Blood Pressure [Ri ght Upper Arm] Pulse Oximetry 97 95 96 Oxygen Delivery Me thod Oxygen Flow Rate 05/24/25 14:42 05/24/25 14:51 05/24/25 15:01 Temperature Pulse Rate 86 87 90 Pulse Rate [Pulse Oximeter] Respiratory Rate 13 16 Blood Pressure 93/69 109/73 103/71 Blood Pressure [Ri ght Upper Arm] Pulse Oximetry 98 96 96 Oxygen Delivery Me thod Oxygen Flow Rate 05/24/25 15:11 05/24/25 15:32 05/24/25 15:56 Temperature Pulse Rate 77 86 79 Pulse Rate [Pulse Oximeter] Respiratory Rate 13 12 13 Blood Pressure 111/79 116/82 112/85 Blood Pressure [Ri ght Upper Arm] Pulse Oximetry 97 98 100 Oxygen Delivery Me thod Oxygen Flow Rate 05/24/25 15:59 05/24/25 16:00 05/24/25 16:02 Temperature Pulse Rate 84 84 Pulse Rate [Pulse Oximeter] Respiratory Rate 10 L 10 L Blood Pressure 128/93 H 121/97 H Blood Pressure [Ri ght Upper Arm] Pulse Oximetry 100 99 100 Oxygen Delivery Me thod Nasal Cannula Nasal Cannula Nasal Cannula Oxygen Flow Rate 2 2 2 05/24/25 16:07 05/24/25 16:12 05/24/25 16:16 Temperature Pulse Rate 47 L 47 L 46 L Pulse Rate [Pulse Oximeter] Respiratory Rate 22 20 12 Blood Pressure 109/78 97/77 95/73 Blood Pressure [Ri ght Upper Arm] Pulse Oximetry 99 100 98 Oxygen Delivery Me thod Nasal Cannula Nasal Cannula Room Air Oxygen Flow Rate 2 2 05/24/25 16:31 Temperature Pulse Rate 47 L Pulse Rate [Pulse Oximeter] Respiratory Rate 12 Blood Pressure 106/72 Blood Pressure [Ri ght Upper Arm] Pulse Oximetry 100 Oxygen Delivery Me thod Room Air Oxygen Flow Rate <Leelee Bullard MD - Last Filed: 06/01/25 08:19> Course Course ED Course: Procedure note: S: I was asked by my colleague Dr. Montejo to provide anesthesia for cardioversion on this patient. Patient has history of AFib with RVR. Failed to convert with diltiazem. Patient last ate at 0730. Did have a banana at approximately 1300 hours. Patient notes that all of his dentition is his and does not come out. He has had no recent sore throat cough cold congestion. No history of reactions to anesthesia in the past. Co: Patient is alert oriented. Eating without difficulty. Heart with an irregularly irregular rhythm but normal rate. Lungs are clear bilaterally. Abdomen soft nontender. Oral cavity WNL. Posterior pharynx easily visualized with normal anatomy. A: Conscious sedation for cardioversion. Plan: Patient noted to have last evening approximately 3-1/2 hours ago. No recent illnesses. At this time suction, BVM standing by. Time-out performed. Patient was given 70 mg of IV propofol with good sedation. Shock delivered x1 with return to normal sinus rhythm. Patient tolerated procedure well <Leelee Bullard MD - Last Filed: 06/01/25 08:19> Vital Signs Vital signs: Initial Vital Signs Temperature 97.4 F L 05/24/25 14:00 Temperature Source Temporal Artery Scan 05/24/25 14:00 Pulse Rate 126 H 05/24/25 14:00 Respiratory Rate 22 05/24/25 14:00 Blood Pressure 96/67 05/24/25 14:00 Blood Pressure Mean 76 09/08/25 14:00 Pulse Oximetry 98 05/24/25 14:00 Oxygen Delivery Method Room Air 05/24/25 14:00 Vital Signs Temperature 97.4 F L 05/24/25 14:00 Pulse Rate 126 H 05/24/25 14:00 Respiratory Rate 22 05/24/25 14:00 Blood Pressure 96/67 05/24/25 14:00 Pulse Oximetry 98 05/24/25 14:00 Oxygen Delivery Method Room Air 05/24/25 14:00 Temperature 97.4 F L 05/24/25 14:00 Pulse Rate 47 L 05/24/25 16:31 Respiratory Rate 12 05/24/25 16:31 Blood Pressure 106/72 05/24/25 16:31 Pulse Oximetry 100 05/24/25 16:31 Oxygen Delivery Method Room Air 05/24/25 16:31 Oxygen Flow Rate 2 05/24/25 16:12 <Stephan Montejo MD - Last Filed: 05/24/25 16:46> Initial Vital Signs Temperature 97.4 F L 05/24/25 14:00 Temperature Source Temporal Artery Scan 05/24/25 14:00 Pulse Rate 126 H 05/24/25 14:00 Respiratory Rate 22 05/24/25 14:00 Blood Pressure 96/67 05/24/25 14:00 Blood Pressure Mean 76 05/24/25 14:00 Pulse Oximetry 98 05/24/25 14:00 Oxygen Delivery Method Room Air 05/24/25 14:00 Vital Signs Temperature 97.4 F L 05/24/25 14:00 Pulse Rate 126 H 05/24/25 14:00 Respiratory Rate 22 05/24/25 14:00 Blood Pressure 96/67 05/24/25 14:00 Pulse Oximetry 98 05/24/25 14:00 Oxygen Delivery Method Room Air 05/24/25 14:00 Temperature 97.4 F L 05/24/25 14:00 Pulse Rate 47 L 05/24/25 16:31 Respiratory Rate 12 05/24/25 16:31 Blood Pressure 106/72 05/24/25 16:31 Pulse Oximetry 100 05/24/25 16:31 Oxygen Delivery Method Room Air 05/24/25 16:31 Oxygen Flow Rate 2 05/24/25 16:12 <Leelee Bullard MD - Last Filed: 06/01/25 08:19> Medications Administered Medications: Discontinued Medications Generic Name Dose Route Start Last Admin Trade Name Freq PRN Reason Stop Dose Admin Apixaban 10 mg 05/24/25 15:40 05/24/25 16:28 Apixaban 5 Mg Tablet PO 05/24/25 15:41 10 mg ONCE ONE Administration Diltiazem HCl 20 mg 05/24/25 14:21 05/24/25 14:27 Diltiazem 5 Mg/Ml Inj IVP 05/24/25 14:22 20 mg ONCE ONE Administration Sodium Chloride 500 mls @ 500 mls/hr 05/24/25 14:32 05/24/25 16:15 0.9 % Sodium Chloride 500 Ml IV 05/24/25 15:31 Infused .Q1H ONE Infusion Sodium Chloride 1,000 mls @ 1,000 mls/hr 05/24/25 16:30 05/24/25 15:30 0.9 % Sodium Chloride 1000 Ml IV 05/24/25 17:29 Infused .Q1H DARREL Infusion Propofol 200 mg 05/24/25 15:40 05/24/25 16:01 Propofol 10 Mg/Ml Inj IVP 05/24/25 15:41 70 mg ONCE ONE Administration <Stephan Montejo MD - Last Filed: 05/24/25 16:46> Discontinued Medications Generic Name Dose Route Start Last Admin Trade Name Greg PRN Reason Stop Dose Admin Apixaban 10 mg 05/24/25 15:40 05/24/25 16:28 Apixaban 5 Mg Tablet PO 05/24/25 15:41 10 mg ONCE ONE Administration Diltiazem HCl 20 mg 05/24/25 14:21 05/24/25 14:27 Diltiazem 5 Mg/Ml Inj IVP 05/24/25 14:22 20 mg ONCE ONE Administration Sodium Chloride 500 mls @ 500 mls/hr 05/24/25 14:32 05/24/25 16:15 0.9 % Sodium Chloride 500 Ml IV 05/24/25 15:31 Infused .Q1H ONE Infusion Sodium Chloride 1,000 mls @ 1,000 mls/hr 05/24/25 16:30 05/24/25 15:30 0.9 % Sodium Chloride 1000 Ml IV 05/24/25 17:29 Infused .Q1H DARREL Infusion Propofol 200 mg 05/24/25 15:40 05/24/25 16:01 Propofol 10 Mg/Ml Inj IVP 05/24/25 15:41 70 mg ONCE ONE Administration <Leelee Bullard MD - Last Filed: 06/01/25 08:19> MDM - Arrhythmia/Palpitations MDM Narrative Medical decision making narrative: This patient comes in with new onset of atrial fibrillation with rapid ventricular response. He states that these symptoms started at 10:00 a.m. this morning. He had a previous episode of similar symptoms about a year ago and was cardioverted at that time. An IV was established where he did receive a total of 1500 mL of normal saline. Labs are also acquired and these returned with normal results. He received 20 mg of diltiazem which slowed his rate but did not convert him out of atrial fibrillation. He is a candidate for synchronized cardioversion and is agreeable to this plan. After acquiring informed consent the patient was prepared for sedation. Dr. Bullard assisted in this procedure. He received 70 mg of propofol intravenously which brought sufficient anesthesia. The cardiac unit was set to synchronized mode for cardioversion. A 1 time dose of 120 joules of energy was delivered to effectively convert him back to normal sinus rhythm. He recovered normally without any need for assistance in his breathing. He tolerated this whole procedure well and states that he is feeling better. I did have discussion with him about causes and prevention of this abnormal rhythm. He did wear a Zio patch last year with no findings of abnormality. I advised him to continue and resume current plans as tolerated and return if symptoms are recurrent. Otherwise he can follow-up with his primary physician or with a heavy repairer. The patient did receive an oral dose of Eliquis here and a prescription for the same to be taken for 1 month. <Stephan Montejo MD - Last Filed: 05/24/25 16:46> Lab Data Labs: Lab Results 05/24/25 05/24/25 Range/Units 14:14 14:21 WBC 9.13 (4.50-11.00) K/uL RBC 4.95 (4.30-5.90) m/uL Hgb 14.9 (13.5-17.5) gm/dL Hct 44.8 (37.0-53.0) % MCV 91 (80-100) fL MCH 30 (26-34) pg MCHC 33 (32-36) gm/dL RDW Coeff of Danielle 12.5 (11.5-15.5) % Plt Count 296 (140-440) K/uL Neut % (Auto) 63.8 (42.0-72.0) % Lymph % (Auto) 19.8 L (20-44) % Wake % (Auto) 11.9 H (0.0-11.0) % Eos % (Auto) 3.6 (0.0-7.0) % Baso % (Auto) 0.7 (0.0-3.0) % Neut # (Auto) 5.82 (1.7-7.0) K/uL Lymph # (Auto) 1.80 (0.90-2.90) K/uL Wake # (Auto) 1.10 H (0.00-0.90) K/UL Eos # (Auto) 0.33 (0.00-0.50) K/uL Baso # (Auto) 0.06 (0.00-0.30) K/uL Abs Immat Gran (auto) 0.02 (0.00-0.30) K/uL Imm/Tot Granulo (auto) 0.2 % Sodium 139 (135-149) mmol/L Potassium 4.0 (3.6-5.1) mmol/L Chloride 103 (96-114) mmol/L Carbon Dioxide 31 (20-32) mmol/L Anion Gap 5 L (7-15) mEq/L BUN 14 (7-30) mg/dL Creatinine 0.9 (0.5-1.5) mg/dL Estimated Creat Clear 77.39 Estimated GFR 94 ml/min Glucose 105 (60-115) mg/dL Calcium 9.5 (8.4-10.6) mg/dL Magnesium 1.9 (1.5-2.6) mg/dL POC Troponin I 0.02 (0.01-0.04) ng/ml <Stephan Montejo MD - Last Filed: 05/24/25 16:46> Lab Results 05/24/25 05/24/25 Range/Units 14:14 14:21 WBC 9.13 (4.50-11.00) K/uL RBC 4.95 (4.30-5.90) m/uL Hgb 14.9 (13.5-17.5) gm/dL Hct 44.8 (37.0-53.0) % MCV 91 (80-100) fL MCH 30 (26-34) pg MCHC 33 (32-36) gm/dL RDW Coeff of Danielle 12.5 (11.5-15.5) % Plt Count 296 (140-440) K/uL Neut % (Auto) 63.8 (42.0-72.0) % Lymph % (Auto) 19.8 L (20-44) % Wake % (Auto) 11.9 H (0.0-11.0) % Eos % (Auto) 3.6 (0.0-7.0) % Baso % (Auto) 0.7 (0.0-3.0) % Neut # (Auto) 5.82 (1.7-7.0) K/uL Lymph # (Auto) 1.80 (0.90-2.90) K/uL Wake # (Auto) 1.10 H (0.00-0.90) K/UL Eos # (Auto) 0.33 (0.00-0.50) K/uL Baso # (Auto) 0.06 (0.00-0.30) K/uL Abs Immat Gran (auto) 0.02 (0.00-0.30) K/uL Imm/Tot Granulo (auto) 0.2 % Sodium 139 (135-149) mmol/L Potassium 4.0 (3.6-5.1) mmol/L Chloride 103 (96-114) mmol/L Carbon Dioxide 31 (20-32) mmol/L Anion Gap 5 L (7-15) mEq/L BUN 14 (7-30) mg/dL Creatinine 0.9 (0.5-1.5) mg/dL Estimated Creat Clear 77.39 Estimated GFR 94 ml/min Glucose 105 (60-115) mg/dL Calcium 9.5 (8.4-10.6) mg/dL Magnesium 1.9 (1.5-2.6) mg/dL POC Troponin I 0.02 (0.01-0.04) ng/ml <Leelee Bullard MD - Last Filed: 06/01/25 08:19> ECG Data Attestation: I personally reviewed and interpreted this ECG as follows: <Stephan Montejo MD - Last Filed: 05/24/25 16:46> Interpretation: Atrial fibrillation with rapid ventricular response. Rate is 152 beats per minute. There are no specific ST or T-wave abnormalities. Repeat EKG after cardioversion shows sinus bradycardia at 47 beats per minute. There are no specific ST or T-wave abnormalities. <Stephan Montejo MD - Last Filed: 05/24/25 16:46> Critical Care Time Critical Care Time Critical Care Time: Yes Attestation: The patient required my highest level preparedness to intervene emergently and I personally spent this critical care time directly and personally managing the patient. This critical care time included: Obtaining a history; Examining the patient; Pulse oximetry; Ordering and reviewing of studies; Arranging urgent treatment with development of a management plan; Evaluation of patients response to treatment; Frequent reassessment discussions with other providers. This critical care time was performed to assess and manage the high probability of imminent life-threatening deterioration that could result in multiorgan failure. It was exclusive of separate billable procedures and treating other patients and teaching time. <Leelee Bullard MD - Last Filed: 06/01/25 08:19> Total Critical Care Time in Minutes: 60 <Leelee Bullard MD - Last Filed: 06/01/25 08:19> Discharge Plan Discharge Clinical Impression: Atrial fibrillation with rapid ventricular response <Stephan Montejo MD - Last Filed: 05/24/25 16:46> Patient Disposition: Home w/ Parent or Adult <Stephan Montejo MD - Last Filed: 05/24/25 16:46> Condition: Improved <Stephan Montejo MD - Last Filed: 05/24/25 16:46> Additional Instructions: Take medication as prescribed. Follow up with MD or return if symptoms are recurrent. <Stephan Montejo MD - Last Filed: 05/24/25 16:46> Prescriptions: New Eliquis DVT-PE Treat 30D Start 5 mg (74 tabs) tablets,dose pack See Rx Instructions PO .COMPLEX Qty: 74 0RF Rx Instructions: orally per package directions No Action ketorolac 0.5 % drops ophthalmic (eye) tamsulosin 0.4 mg capsule 0.4 mg PO DAILY omeprazole 20 mg capsule,delayed release(DR/EC) 20 mg PO DAILY timolol maleate 0.5 % drops 1 drp ophthalmic (eye) BID rosuvastatin 10 mg tablet 10 mg PO QPM <Stephan Montejo MD - Last Filed: 05/24/25 16:46> Follow Up/Referrals: FABRICE IQBAL DO [Primary Care Provider, Family Practice] <Stephan Montejo MD - Last Filed: 05/24/25 16:46> Stand Alone Forms: [employer] Info Instructions <Stephan Montejo MD - Last Filed: 05/24/25 16:46>
[2025-05-24] MEDS: dilTIAZem 5 MG/ML inj 20 MG IVP (14:27)
[2025-05-24 14:33] LABS: Troponin, Point-of-Care* 0.02 ng/ml (0.01-0.04)
[2025-05-24 14:35] LABS: Hematocrit* 44.8 % (37.0-53.0); Hemoglobin* 14.9 gm/dL (13.5-17.5); Immature Granulocytes Abs Auto 0.02 K/uL (0.00-0.30); Immature Granulocytes Pct Auto 0.2 %; Mean Corpuscular HGB Conc 33 gm/dL (32-36); Mean Corpuscular Hemoglobin 30 pg (26-34); Mean Corpuscular Volume 91 fL (80-100); RDW Coefficient of Variation % 12.5 % (11.5-15.5); Red Blood Count* 4.95 m/uL (4.30-5.90); White Blood Count* 9.13 K/uL (4.50-11.00)
[2025-05-24 14:37] LABS: Lymphocytes Absolute Auto 1.80 K/uL (0.90-2.90); Slide Review Reflex No
[2025-05-24 14:46] LABS: Chloride* 103 mmol/L (96-114)
[2025-05-24 14:47] LABS: Potassium* 4.0 mmol/L (3.6-5.1); Sodium* 139 mmol/L (135-149)
[2025-05-24 14:49] LABS: Blood Urea Nitrogen* 14 mg/dL (7-30); Creatinine* 0.9 mg/dL (0.5-1.5); Est. Creatinine Clearance* 77.39; Estimated Glomerular Filt Rate 94 ml/min
[2025-05-24 14:50] LABS: Anion Gap 5 mEq/L (7-15); Calcium* 9.5 mg/dL (8.4-10.6); Carbon Dioxide* 31 mmol/L (20-32); Glucose* 105 mg/dL (60-115)
[2025-05-24] MEDS: 0.9 % SODIUM CHLORIDE 500 ML 500 ML IV (15:59)
[2025-05-24] MEDS: PROPOFOL 10 MG/ML INJ 200 MG IVP (16:01)
--- NOTE | 2025-05-24 16:12 | RESP.RT ---
Airway management during cardioversion. Patient maintained airway during and post procedure.
[2025-05-24] MEDS: APIXABAN 5 MG TABLET 10 MG PO (16:28)
== END 2025-05-24 16:45 | disposition home or self-care (01) ==
PROVIDERS: Emergency Provider Emergency Medicine Emergency Medical Services; PCP Student in an Organized Health Care Education/Training Program
DX: I48.91 Unspecified atrial fibrillation (principal); R00.1 Bradycardia, unspecified
CPT/HCPCS: 92960; 36415; 80048; 83735; 84484; 85025; 93005; 94761; 99284; 99291; A9270; J2704; J7030